=== PATIENT | female | born 1985 | race Caucasian/White ===

== ENCOUNTER 2017-03-23 11:40 | Inpatient (IN) | payer OTHER ==
[2017-03-23] MEDS ORDERED: LIDOCAINE 1% 300 MG/30 ML SDV SC PRN (12:16)
[2017-03-23] MEDS ORDERED: OXYTOCIN/RINGERS LACTATE 1,000 ML IV PRN (12:16)
[2017-03-23] MEDS ORDERED: OLIVE OIL 118 ML BTL MISC PRN (12:16)
[2017-03-23] MEDS ORDERED: TERBUTALINE SULFATE 1 MG/ML VIAL IV PRN (12:16)
[2017-03-23] MEDS ORDERED: EPSOM SALT 454 GM TP PRN (12:16)
[2017-03-23] MEDS ORDERED: LR 1,000 ML IV PRN (12:16)
[2017-03-23 13:10] LABS: % IMMATURE GRANULYOCYTES 0.4 % (0.0-1.1); ABSOLUTE IMMATURE GRANULOCYTES 0.06 10^3/uL (0.00-0.10); ADD DIFF? NO; ADD MORPH? NO; ADD SCAN? NO; ATYPICAL LYMPHOCYTE FLAG 0 (0-99); FRAGMENT RBC FLAG 0 (0-99); HEMATOCRIT 41.6 % (38.0-47.0); HEMOGLOBIN 14.3 g/dL (12.6-16.3); LEFT SHIFT FLG 0 (0-99); LIPEMIA HEMOLYSIS FLAG 90 (0-99); MEAN CELL HEMOGLOBIN 31.4 pg (27.9-34.1); MEAN CELL HEMOGLOBIN CONCENTR. 34.4 g/dL (32.4-36.7); MEAN CELL VOLUME 91.2 fL (81.5-99.8); MEAN PLATELET VOLUME 12.8 fL (8.7-11.7); PLATELET CLUMPS FLAG 10 (0-99); PLATELET COUNT 133 10^3/uL (150-400); RED BLOOD CELL COUNT 4.56 10^6/uL (4.18-5.33); RED CELL DISTRIBUTION WIDTH 13.3 % (11.5-15.2)
--- NOTE | 2017-03-23 13:22 | OBPROG ---
OBG Progress Note Assessment/Plan: Assessment: cat 1 fhr pain well managed contractions q2-3 exam /-1 cephalic Plan:expectant management of labor 03/23/17 13:21 Subjective: Doing well. Began savanna routinely at 0900. Cephalic on exam by nurse Objective: 03/23/17 12:14 - SVE Dilation (cm): 5 Effacement (%): 100 Station: -1 Current Contraction Pattern: Regular FHR (bpm): 15 FHR Pattern Variability: Moderate FHR Category: 1 Membranes: Intact - Physical Exam General Appearance: WD/WN, alert, no apparent distress Respiratory: chest non-tender, lungs clear, normal breath sounds Cardiac/Chest: regular rate, rhythm Abdomen: normal bowel sounds Extremities: normal range of motion, Gwen's sign (negative bilaterally) DTR- Lower Extremities: Knee (R): 1+, Knee (L): 1+ (no clonus) Skin: normal color, warm/dry Neuro/Psych: no motor/sensory deficits, alert, normal mood/affect, oriented x 3 ICD10 Worksheet Patient Problems: Problems Problem Status Onset Labor established Acute
--- NOTE | 2017-03-23 13:49 | GHP ---
[f rep st] HISTORY AND PHYSICAL DATE OF ADMISSION: 03/23/2017 HISTORY OF PRESENT ILLNESS: The patient is a 2, para 1, 31-year-old, with complaints of regular contractions since 9 am on 03/23/2017. Comes into Labor and Delivery for a labor check. Denies bloody show. Feeling positive movement. Denies leaking of fluid. On exam, patient was 5, 100, -1, cephalic, savanna every 2-3 minutes. The patient has been seen routinely with [facility] since early in , since 9 weeks and 1 day. MEDICAL HISTORY: Benign. SURGICAL HISTORY: Benign. GYNECOLOGICAL HISTORY: History of OCP, condom use. Paps have been within normal limits. FAMILY HISTORY: Noncontributory. SOCIAL HISTORY: Patient is . is Erik. ALLERGIES: Patient is not allergic to any medications. MEDICATIONS: Routinely taking vitamins, iron, DHA and vitamin D3 Previous : vaginal delivery previously no difficulties LABS: Patient is B positive. Antibody negative. RPR is nonreactive. Rubella is immune. Hepatitis is negative. HIV is negative. Triple screen on 2013 was negative. Pap was within normal limits. Gonorrhea and chlamydia were negative. 1 hour GTT was within normal limits. GBS negative DIET HISTORY: Patient is vegan. On admission labs were done, patient is not anemic. The patient had a hematocrit of 41.6. Patient is also GBS negative. PHYSICAL ASSESSMENT: GENERAL: Patient is awake, alert, oriented x3. LUNGS: Clear bilaterally. ABDOMEN: Bowel sounds are positive in all 4 quadrants. Contractions are every 2-3 minutes. Exam was 5, 100, -1, cephalic, savanna every 2-3. On palpation of abdomen is firm with contractions and relaxes in between. EXTREMITIES: DTRs are 1+ bilaterally. No clonus. Homans' sign is negative bilaterally. PLAN OF CARE: 1. GBS negative. 2. Expectant management of labor at patient's request. Patient is choosing to get into tub for pain relief. /[id number]/MODL MTDD
[2017-03-23] MEDS ORDERED: OLIVE OIL 118 ML BTL ONE (13:57)
[2017-03-23] MEDS ORDERED: LIDOCAINE 1% 300 MG/30 ML SDV ONE (13:57)
[2017-03-23] MEDS ORDERED: AMMONIA AROMATIC 1 EACH AMP IH ONE (13:57)
[2017-03-23] MEDS ORDERED: MISOPROSTOL 200 MCG TAB ONE (13:58)
[2017-03-23] MEDS ORDERED: OXYTOCIN 10 UNIT/ML VIAL ONE (13:58)
--- NOTE | 2017-03-23 15:06 | OBPROG ---
OBG Progress Note Assessment/Plan: Assessment: cat 1 fhr pain well managed contractions q2-3 exam 8/100/0 cephalic gbs negative out of tub return to bed to right side with peanut ball Plan:expectant management of labor 03/23/17 13:21 03/23/17 15:05 Objective: 03/23/17 12:14 Patient ABO/Rh B POSITIVE 03/23/17 12:14 - SVE Dilation (cm): 8 Effacement (%): 100 Station: 0 Current Contraction Pattern: Regular FHR (bpm): 125 FHR Pattern Variability: Moderate FHR Category: 1 Membranes: SROM Amniotic Fluid Color: Clear ICD10 Worksheet Patient Problems: Problems Problem Status Onset Labor established Acute
[2017-03-23] MEDS ORDERED: HYDROCODONE/APAP 5/325 TAB PO PRN (15:46)
[2017-03-23] MEDS ORDERED: HYDROCORTISONE 0.5% CREAM TP PRN (15:46)
[2017-03-23] MEDS ORDERED: ACETAMINOPHEN 325 MG TAB PO PRN (15:46)
[2017-03-23] MEDS ORDERED: DOCUSATE SODIUM 100 MG CAP PO PRN (15:46)
[2017-03-23] MEDS ORDERED: SIMETHICONE 80 MG TAB CHEW PO PRN (15:46)
--- NOTE | 2017-03-23 15:46 | OBPROC ---
- Labor and Delivery Onset of Contractions Date: 03/23/17 Onset of Contractions Time: 09:00 Rupture of Membranes Date: 03/23/17 Rupture of Membranes Time: 14:52 Rupture of Membranes Type: Artificial Amniotic Fluid Color: Clear Dilation Complete Time: 15:26 Delivery Type: Spontaneous Placenta Delivery Date: 03/23/17 Placenta Delivery Time: 15:35 EBL: 250 Complications: None - Medications Labor Augmentation/Induction Meds Used: None Labor Augmentation/Induction Indication: Post Dates - [place] Info A Delivery Date: 03/23/17 Delivery Time: 15:29 Sex of : Male Score (1 Min): 8 Score (5 Min): 9
[2017-03-23] MEDS: IBUPROFEN 600 MG TAB PO PRN (16:01)
[2017-03-23] MEDS ORDERED: METHYLERGONOVINE MAL 0.2 MG/ML INJ ONE (16:11)
[2017-03-23] MEDS ORDERED: METHYLERGONOVINE MAL 0.2 MG/ML INJ IM ONE (16:30)
[2017-03-23] MEDS ORDERED: OXYTOCIN IV ONE (16:30)
[2017-03-23] MEDS ORDERED: [UNRECOGNIZED DRUG - OTHER] IV ONE (16:30)
[2017-03-23] MEDS ORDERED: OXYTOCIN/RINGERS LACTATE 1,000 ML IV SCH (17:00)
[2017-03-23] MEDS: METHYLERGONOVINE MAL 0.2 MG TAB PO SCH (19:38)
[2017-03-23 20:10] VITALS: RESP 16
[2017-03-24] MEDS: IBUPROFEN 600 MG TAB PO PRN ×4 (00:53→19:42)
[2017-03-24] MEDS: METHYLERGONOVINE MAL 0.2 MG TAB PO SCH ×4 (01:59→19:42)
--- NOTE | 2017-03-24 10:05 | SOAPPROG ---
SOAP Progress Note Assessment/Plan: Assessment: PPD 1 s/p Plan: routine care 03/24/17 10:00 Subjective: Pt doing well. Baby has been latching well. Mod cramps - ok with ibu. urinating fine. bld has decreased quite a bit. Objective: Vital Signs Temp Pulse Resp BP Pulse Ox 36.6 C 101 H 16 110/68 03/23/17 20:10 03/23/17 20:10 03/23/17 20:10 03/23/17 20:10 Laboratory Results 03/23/17 12:14 03/23/17 03/24/17 03/25/17 05:59 05:59 05:59 Output Total 350 Balance -350 Physical Exam - Physical Exam General Appearance: WD/WN Abdomen: non-tender, other (FF at umb -2) Pelvic Exam: vaginal bleeding (normal lochia) Extremities: non-tender, pedal edema (minimal) Neuro/Psych: normal mood/affect ICD10 Worksheet Patient Problems: Problems Problem Status Onset Labor established Acute
[2017-03-25] MEDS: METHYLERGONOVINE MAL 0.2 MG TAB PO SCH (02:33)
[2017-03-25] MEDS: IBUPROFEN 600 MG TAB PO PRN (02:33)
[2017-03-25 09:43] VITALS: BP 101/69; PULSE 76; TEMP 98.2; O2SAT 98
--- NOTE | 2017-03-25 10:34 | SOAPPROG ---
SOAP Progress Note Assessment/Plan: Assessment: PPD 2 s/p Plan: routine care, d/c home 03/24/17 10:00 03/25/17 10:33 Subjective: doing fine. ready for d/c. bld is light. urinating fine. baby is latching well. Objective: Vital Signs Temp Pulse Resp BP Pulse Ox 36.8 C 76 16 101/69 98 03/25/17 08:00 03/25/17 08:00 03/25/17 08:00 03/25/17 08:00 03/25/17 08:00 Laboratory Results 03/23/17 12:14 03/24/17 03/25/17 03/26/17 05:59 05:59 05:59 Output Total 350 Balance -350 Physical Exam - Physical Exam General Appearance: WD/WN Abdomen: non-tender, soft, other (FF at umb -2) Pelvic Exam: vaginal bleeding (normal lochia) Extremities: non-tender, pedal edema (minimal) Neuro/Psych: normal mood/affect ICD10 Worksheet Patient Problems: Problems Problem Status Onset (spontaneous vaginal delivery) Acute
== END 2017-03-25 11:30 | disposition home or self-care (01) | DRG 775 ==
LOC: OBSVTOIN 11:40 → FLD 11:40 → FOB 19:20
PROVIDERS: ADMIT Advanced Practice Midwife; ATTEND Advanced Practice Midwife
DX: O48.0 Post-term pregnancy (principal); Z37.0 Single live birth; Z3A.41 41 weeks gestation of pregnancy
CPT/HCPCS: J2210; J2590